=== PATIENT | female | born 1960 | race Caucasian/White ===

== ENCOUNTER 2016-04-12 09:22 | Inpatient (IN) | payer OTHER ==
[~2016-04-12] VITALS: Ht 162.6 cm; Wt 71.6 kg
[2016-04-12] VITALS (11 sets, daily range): BP systolic 79–102; BP diastolic 46–58
--- NOTE | 2016-04-12 10:59 | DIAGNOSTIC IMAGING REPORT ---
PROCEDURE: XR CHEST 1 VIEW INDICATION: COUGH TECHNIQUE: Portable AP view 09:43 a.m. COMPARISON: 01/30/2016 FINDINGS: Lungs are clear. Heart and mediastinum are normal. Thorax is normal. IMPRESSION: 1. Negative chest.
--- NOTE | 2016-04-12 13:09 | ED ORDER SUMMARY ---
..... Patient: JESUS HUGHES OrderSheet [facility] VisitID: [id number] [address] [place] [address] 55y, F Registration Date/Time: 04/12/2016 ORDER SHEET Weight: 68.0 kg Allergies: Ampicillin, Cipro, PredniSONE, Sulfa Antibiotics, Zithromax GENERAL ORDERS: RT Evaluation Stat (09:34 04/12/2016 JBoardley R.N. per protocol) (9:34 JBoardley R.N.) Electronic Transaction Implementer (Continuous) (Respiratory Distress) (09:36 04/12/2016 JBoardley R.N. per protocol) (9:37 JBoardley R.N.) CBC w Diff Urgent (09:37 04/12/2016 JBoardley R.N. per protocol) (Ack 9:38 Marlon) (9:46 JBoardley R.N.) CMP Urgent (09:37 04/12/2016 JBoardley R.N. per protocol) (Ack 9:38 OHcecilianandez) (9:46 JBoardley R.N.) Pulse oximeter (09:37 04/12/2016 JBoardley R.N. per protocol) (9:37 JBoardley R.N.) Vitals (09:37 04/12/2016 JBoardley R.N. per protocol) (9:37 JBoardley R.N.) Chest 1V Urgent (09:38 04/12/2016 JBoardley R.N. per protocol) (Ack 9:39 Charlienandez) (9:45 JBoardley R.N.) Rapid Influenza Screen (Nasal Pharyngeal) (Nasal) Urgent (09:38 04/12/2016 JBoardley R.N. per protocol) (Ack 9:39 OHcecilianandez) (9:46 JBoardley R.N.) Culture, Sputum (Sputum) (Sputum sample) Urgent (09:41 04/12/2016 JBoardley R.N. per protocol) (Ack 9:51 OHcecilianandez) (9:51 JBoardley R.N.) PCT (Procalcitonin) Urgent (10:32 04/12/2016 Jenna JACOBS) (Ack 10:36 RKaruga) (11:00 JBoardley R.N.) Lactate, Serum Urgent (10:32 04/12/2016 Jenna JACOBS) (Ack 10:36 RKaruga) (11:00 JBoardley R.N.) ABG (G) Urgent (10:33 04/12/2016 Jenna JACOBS) (Ack 10:36 RKaruga) (Cancelled: Patient Zdtdawp36:19 JBoardley R.N.) Blood Culture (No) (N/A) Urgent (10:37 04/12/2016 Jenna JACOBS) (Ack 10:52 RKaruga) (11:00 JBoardley R.N.) UA-Culture if indicated Urgent (11:12 04/12/2016 JBoardley R.N. per protocol) (Ack 11:21 RKaruga) (11:21 RKaruga) EKG - ER Stat (12:54 04/12/2016 Jenna JACOBS) (Ack 13:15 OHernandez) (13:15 OHernandez) - (Biofire screen.) (13:08 04/12/2016 Jenna JACOBS) (Ack 13:56 Ramakrishna) (14:03 JBoardley R.N.) MEDICATION ORDERS: DuoNeb Neb Tx 1 unit dose (NOW) (09:34 04/12/2016 JBoardley R.N. per protocol) (9:34 JBoardley R.N.) Hydrocodone-APAP PO 10/650 mg (NOW) (10:41 04/12/2016 Jenna JACOBS) (Ack 10:43 JBoardley R.N.) (10:58 JBoardley R.N.) DuoNeb Neb Tx 1 unit dose (NOW) (12:54 04/12/2016 Jenna JACOBS) (13:04 RMcCarson) IV FLUIDS: IV Saline Lock (09:37 04/12/2016 JBoardley R.N. per protocol) (9:42 JBoardley R.N.) Solu-MEDROL IV 125 mg (NOW) (10:33 04/12/2016 Jenna JACOBS) (Ack 10:36 JBoardley R.N.) (11:08 JBoardley R.N.) IV NS : initial bolus none -, then 250 mL/hr for 4h (NOW); Routine (10:34 04/12/2016 Jenna JACOBS) (Ack 10:36 JBoardley R.N.) (10:58 JBoardley R.N.) Rocephin IV 2 gm/50mL (NOW) (10:38 04/12/2016 Jenna JACOBS) (Ack 10:43 JBoardley R.N.) (11:07 JBoardley R.N.) Toradol IV 30 mg (NOW) (10:40 04/12/2016 Jenna JACOBS) (Ack 10:43 JBoardley R.N.) (10:58 JBoardley R.N.) Benadryl IV 50 mg (NOW) (10:52 04/12/2016 Jenna JACOBS) (10:59 JBoardley R.N.) IV NS : initial bolus 1000 mL (1000 mL/hr), then none - for X1 (NOW); Stat (12:29 04/12/2016 Cherelle R.N. verbal order read back to Jenna JACOBS) (12:30 JBoardley R.N.) ORDER SHEET NOTES: [Electronically signed by Aj Roblero R.N. (16:35 04/12/2016)] [Electronically signed by Ian Barker MD (16:51 04/12/2016)] [Electronically locked/signed by Aj Roblero R.N. (16:35 04/12/2016)]
--- NOTE | 2016-04-12 13:09 | ED CLINICAL REPORT ---
Clinical Report - Physicians/Mid Levels [facility] [address] [place] [address] 04/12/2016 9:22 Patient: JESUS HUGHES Time Seen: 10:20 Apr 12 2016. Arrived- By private vehicle. Historian- patient. CPT: EKG interpretation (#[id number]). HISTORY OF PRESENT ILLNESS Chief Complaint: DYSPNEA, WHEEZING and HISTORY OF ASTHMA. 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 The dyspnea is described as moderate. The patient has had sputum production and a cough. No chest pain. Asthma triggers: unknown. (patient indicates she was diagnosed with pneumonia 2 weeks ago and went through a course of antibiotics for 10 days. Antibiotics ended 4 days ago. Patient then started to get worse again Tuesday or 2 days prior to arrival.). Similar symptoms previously: As bad. Diagnosis: asthma, COPD exacerbation and pneumonia. Recent medical care: ( ( Pt was recently seen and finished abx course due, dx of PNA by [facility])). REVIEW OF SYSTEMS No sore throat, nasal discharge, sinus drainage, chills or muscle aches. No headache, palpitations, calf pain, nausea or abdominal pain. No diarrhea, black stools, difficulty with urination, excessive urination or skin rash. No enlarged lymph nodes. The patient has had fever. All systems otherwise negative, except as recorded above. PAST HISTORY Glaucoma Emphysema. Bronchitis. Asthma. COPD - Chronic Obstructive Pulmonary Disease. Surgeries: Adenoidectomy. Breast Augmentation. Eye (for glaucoma). Hysterectomy. Thoracic outlet syndrome. Tonsillectomy. SOCIAL HISTORY Former smoker. PHYSICAL EXAM Vital Signs: 04/12/2016 09:27 BP: 113/71. HR: 110. RR: 26. O2 saturation: 90%. Temp: 98 F. Appearance: Alert. Patient in moderate distress. Eyes: Eyes normal inspection. ENT: Ears normal. Nose normal. Pharynx normal. Uvula midline. Neck: Normal inspection. Neck supple. No meningeal signs. CVS: Tachycardia. Heart sounds normal. Pulses normal. Respiratory: Moderate respiratory distress with accessory muscle use and tachypnea. Moderately decreased air movement diffusely over both lungs. Expiratory moderate bilateral wheezes posteriorly. Rhonchi present. Abdomen: Soft and nontender. Back: Normal inspection. Skin: Skin warm. Normal skin color. No rash. Extremities: Extremities exhibit normal ROM. No calf tenderness. No lower extremity edema. Neuro: Oriented X 3. No motor deficit. No sensory deficit. Reflexes normal. LABS, X-RAYS, AND EKG EKG: Normal sinus rhythm. Normal P waves. Normal MAGDALENA. Normal QRS complex. Normal axis. T wave inversion in lead V1 and V2. No ST elevation. Prior EKG unavailable. The study has been interpreted contemporaneously. The study has been independently viewed by me. The EKG appears to be a good tracing. Chest X-ray: No infiltrate. (Breast implants. No evidence of acute infiltrate.). Views: AP (portable). Technique: good. The X-rays were independently viewed by me. Prior films were not available for comparison. Laboratory Tests: CBC w Diff: (NICOLASA: 04/12/2016 09:30) ( [facility] 04/12/[place] 09:59) Final results Test Result Flag Units (Reference) WHITE BLOOD COUNT 20.4 H K/uL (4.5-11.5) RED BLOOD COUNT 4.82 M/uL (4.00-5.20) HEMOGLOBIN 14.9 gm/dL (12.0-16.0) HEMATOCRIT 45.0 % (36.0-46.0) MEAN CELL VOLUME 94 fL (80-100) MEAN CORPUSCULAR HGB 31 pg (26-34) MEAN CORPUSCULAR HGB CONC 33 g/dL (31-37) RED CELL DISTRIBUTION WIDTH 12.6 % (11.6-14.8) PLATELET COUNT 370 K/uL (150-400) NEUTROPHIL % 83.9 H % (50-75) LYMPH % 8.2 L % (25-40) MONO % 6.8 % (3-14) EOSINOPHIL % 0.1 % (0-4) BASOPHIL % 1.0 % (0-2) CMP: (NICOLASA: 04/12/2016 09:30) ( [facility] 04/12/2016 10:07) Final results Test Result Flag Units (Reference) GLUCOSE 108 mg/dL (70-110) BUN 10 mg/dL (7-18) CREATININE 0.8 mg/dL (0.6-1.3) Estimated GFR >60 mL/min Estimated GFR- >60 mL/min Note: Persistent reduction over 3 months in eGFR<60 mL/min/1.73 m2 defines CKD. Patients with eGFR values>=60 mL/min/1.73 m2 may also have CKD if evidence ofpersistent proteinuria. Additional information may be foundat www.kidney.org. SODIUM 142 mmol/L (136-145) POTASSIUM 3.9 mmol/L (3.5-5.1) CHLORIDE 106 mmol/L (98-107) CARBON DIOXIDE 24 mmol/L (21-32) CALCIUM 8.6 mg/dL (8.5-10.1) TOTAL PROTEIN 6.8 g/dL (6.4-8.2) ALBUMIN 3.7 g/dL (3.3-5.0) BILIRUBIN, TOTAL 1.2 H mg/dL (0.0-1.0) ALKALINE PHOSPHATASE 59 U/L (46-116) AST (SGOT) 14 L U/L (15-37) ALT (SGPT) 29 U/L (12-78) Rapid Influenza Screen: (NICOLASA: 04/12/2016 09:30) ( [facility]cvd 04/12/2016 10:19) Final results SPECIMEN DESCRIPTION: NASAL Test Result Flag Units (Reference) RAPID INFLUENZA SCREEN DATE: 04/12/16 INFLUENZA A: NEGATIVE SCREEN FOR INFLUENZA A INFLUENZA B: NEGATIVE SCREEN FOR INFLUENZA B . PROGRESS AND PROCEDURES Course of Care: IV normal saline. Dual neb hand-held neb 2. Blood cultures 1. Rocephin 2 g IV. toradol 30 mg IV. Hydrocodone 10 mg by mouth. Patient dropped her blood pressure into the 70-80 range for unclear reasons. She was treated with boluses of IV normal saline. Her blood pressure came back up to 100/65 after fluids. Critical care performed (30 minutes). Time is exclusive of separately billable procedures. Time includes: direct patient care, patient reassessment, coordination of patient care, interpretation of data (laboratory data, pulse oximetry and chest xrays), review of patient's medical records, medical consultation and documentation of patient care. Procedures included in critical care time: peripheral IV placement and phlebotomy. Procedures excluded from critical care time: electrocardiography. Discussed case with on-call health care provider, (Kely). Reviewed test results. Agreed upon treatment plan. Health care provider will see patient in hospital. Patient/family counseled. Old medical records ordered. Disposition orders written. Disposition: Admitted to the Critical Care Unit. CLINICAL IMPRESSION Acute exacerbation of COPD (emphysematous) Hypoxia Hypotension. (Electronically signed by Ian Barker MD 04/12/2016 16:51)
--- NOTE | 2016-04-12 13:09 | ED CLINICAL REPORT ---
Clinical Report - Physicians/Mid Levels [facility] [address] [place] [address] 04/12/2016 9:22 Patient: JESUS HUGHES Time Seen: 10:20 Apr 12 2016. Arrived- By private vehicle. Historian- patient. CPT: EKG interpretation (#[id number]). HISTORY OF PRESENT ILLNESS Chief Complaint: DYSPNEA, WHEEZING and HISTORY OF ASTHMA. 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 The dyspnea is described as moderate. The patient has had sputum production and a cough. No chest pain. Asthma triggers: unknown. (patient indicates she was diagnosed with pneumonia 2 weeks ago and went through a course of antibiotics for 10 days. Antibiotics ended 4 days ago. Patient then started to get worse again Tuesday or 2 days prior to arrival.). Similar symptoms previously: As bad. Diagnosis: asthma, COPD exacerbation and pneumonia. Recent medical care: ( ( Pt was recently seen and finished abx course due, dx of PNA by [facility])). REVIEW OF SYSTEMS No sore throat, nasal discharge, sinus drainage, chills or muscle aches. No headache, palpitations, calf pain, nausea or abdominal pain. No diarrhea, black stools, difficulty with urination, excessive urination or skin rash. No enlarged lymph nodes. The patient has had fever. All systems otherwise negative, except as recorded above. PAST HISTORY Glaucoma Emphysema. Bronchitis. Asthma. COPD - Chronic Obstructive Pulmonary Disease. Surgeries: Adenoidectomy. Breast Augmentation. Eye (for glaucoma). Hysterectomy. Thoracic outlet syndrome. Tonsillectomy. SOCIAL HISTORY Former smoker. PHYSICAL EXAM Vital Signs: 04/12/2016 09:27 BP: 113/71. HR: 110. RR: 26. O2 saturation: 90%. Temp: 98 F. Appearance: Alert. Patient in moderate distress. Eyes: Eyes normal inspection. ENT: Ears normal. Nose normal. Pharynx normal. Uvula midline. Neck: Normal inspection. Neck supple. No meningeal signs. CVS: Tachycardia. Heart sounds normal. Pulses normal. Respiratory: Moderate respiratory distress with accessory muscle use and tachypnea. Moderately decreased air movement diffusely over both lungs. Expiratory moderate bilateral wheezes posteriorly. Rhonchi present. Abdomen: Soft and nontender. Back: Normal inspection. Skin: Skin warm. Normal skin color. No rash. Extremities: Extremities exhibit normal ROM. No calf tenderness. No lower extremity edema. Neuro: Oriented X 3. No motor deficit. No sensory deficit. Reflexes normal. LABS, X-RAYS, AND EKG EKG: Normal sinus rhythm. Normal P waves. Normal MAGDALENA. Normal QRS complex. Normal axis. T wave inversion in lead V1 and V2. No ST elevation. Prior EKG unavailable. The study has been interpreted contemporaneously. The study has been independently viewed by me. The EKG appears to be a good tracing. Chest X-ray: No infiltrate. (Breast implants. No evidence of acute infiltrate.). Views: AP (portable). Technique: good. The X-rays were independently viewed by me. Prior films were not available for comparison. Laboratory Tests: CBC w Diff: (NICOLASA: 04/12/2016 09:30) ( [facility] [place] 09:59) Final results Test Result Flag Units (Reference) WHITE BLOOD COUNT 20.4 H K/uL (4.5-11.5) RED BLOOD COUNT 4.82 M/uL (4.00-5.20) HEMOGLOBIN 14.9 gm/dL (12.0-16.0) HEMATOCRIT 45.0 % (36.0-46.0) MEAN CELL VOLUME 94 fL (80-100) MEAN CORPUSCULAR HGB 31 pg (26-34) MEAN CORPUSCULAR HGB CONC 33 g/dL (31-37) RED CELL DISTRIBUTION WIDTH 12.6 % (11.6-14.8) PLATELET COUNT 370 K/uL (150-400) NEUTROPHIL % 83.9 H % (50-75) LYMPH % 8.2 L % (25-40) MONO % 6.8 % (3-14) EOSINOPHIL % 0.1 % (0-4) BASOPHIL % 1.0 % (0-2) CMP: (NICOLASA: 04/12/2016 09:30) ( [facility] [place]/12[place]:07) Final results Test Result Flag Units (Reference) GLUCOSE 108 mg/dL (70-110) BUN 10 mg/dL (7-18) CREATININE 0.8 mg/dL (0.6-1.3) Estimated GFR >60 mL/min Estimated GFR- >60 mL/min Note: Persistent reduction over 3 months in eGFR<60 mL/min/1.73 m2 defines CKD. Patients with eGFR values>=60 mL/min/1.73 m2 may also have CKD if evidence ofpersistent proteinuria. Additional information may be foundat www.kidney.org. SODIUM 142 mmol/L (136-145) POTASSIUM 3.9 mmol/L (3.5-5.1) CHLORIDE 106 mmol/L (98-107) CARBON DIOXIDE 24 mmol/L (21-32) CALCIUM 8.6 mg/dL (8.5-10.1) TOTAL PROTEIN 6.8 g/dL (6.4-8.2) ALBUMIN 3.7 g/dL (3.3-5.0) BILIRUBIN, TOTAL 1.2 H mg/dL (0.0-1.0) ALKALINE PHOSPHATASE 59 U/L (46-116) AST (SGOT) 14 L U/L (15-37) ALT (SGPT) 29 U/L (12-78) Rapid Influenza Screen: (NICOLASA: 04/12/2016 09:30) ( MsgRcvd 04/12/2016 10:19) Final results SPECIMEN DESCRIPTION: NASAL Test Result Flag Units (Reference) RAPID INFLUENZA SCREEN DATE: 04/12/16 INFLUENZA A: NEGATIVE SCREEN FOR INFLUENZA A INFLUENZA B: NEGATIVE SCREEN FOR INFLUENZA B . PROGRESS AND PROCEDURES Course of Care: IV normal saline. Dual neb hand-held neb 2. Blood cultures 1. Rocephin 2 g IV. toradol 30 mg IV. Hydrocodone 10 mg by mouth. Patient dropped her blood pressure into the 70-80 range for unclear reasons. She was treated with boluses of IV normal saline. Her blood pressure came back up to 100/65 after fluids. Critical care performed (30 minutes). Time is exclusive of separately billable procedures. Time includes: direct patient care, patient reassessment, coordination of patient care, interpretation of data (laboratory data, pulse oximetry and chest xrays), review of patient's medical records, medical consultation and documentation of patient care. Procedures included in critical care time: peripheral IV placement and phlebotomy. Procedures excluded from critical care time: electrocardiography. Discussed case with on-call health care provider, (Kely). Reviewed test results. Agreed upon treatment plan. Health care provider will see patient in hospital. Patient/family counseled. Old medical records ordered. Disposition orders written. Disposition: Admitted to the Critical Care Unit. CLINICAL IMPRESSION Acute exacerbation of COPD (emphysematous) Hypoxia Hypotension. (Electronically signed by Ian Barker MD 04/12/2016 16:51)
--- NOTE | 2016-04-12 13:09 | ED NURSING NOTES ---
Clinical Report - Nurses [facility] [address] [place] [address] 04/12/2016 9:22 Patient: JESUS HUGHES TRIAGE Triage time 09:27. Acuity: LEVEL 3. Chief Complaint: SHORTNESS OF BREATH, DIFFICULTY BREATHING and "ASTHMA ATTACK". 09:28 04/12/16. 09:28 04/12/16. --09:33 Aj Roblero R.N. 09:27 04/12/16. BP: 113/71. HR: 110. RR: 26. O2 saturation: 90% on room air. Temp: 98 F (oral). --09:33 Aj Roblero R.N. 09:35 04/12/16. Pain level now: 8/10. --09:35 Aj Roblero R.N. ( Pt was recently seen and finished abx course due, dx of PNA by [facility]). --09:40 Aj Roblero R.N. Weight: 68 kg. Height/Length: 64 inches. BMI: 25.8. --09:29 Aj Roblero R.N. Medications Advair Diskus Inhalation 2 puffs, 2x a day. Ventolin HFA Inhalation 2 puffs, as needed. --09:31 Aj Roblero R.N. Medication/allergy information source: the patient. --09:33 Aj Roblero R.N. Allergies Ampicillin. Cipro. Definite Moderate(hives) PredniSONE. (broke out with Welts with Prednisone, was treated with Decadron, still needed Benadryl. ) Sulfa Antibiotics. Definite Moderate(hives) Zithromax. Definite Moderate(swelling) --09:31 Aj Roblero R.N. History Arrived by private vehicle. Historian: patient. Accompanied by family. Primary physician (GWEN KOO). 09:28 04/12/16. Onset. (2 DAYS AGO). 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 PAST MEDICAL HX: Immunizations not up to date. SOCIAL HX: Former smoker. No alcohol use or drug use. No infectious disease exposure. ABUSE ASSESSMENT: No report of abuse. FALL RISK ASSESSMENT: Fall risk assessment completed. No fall risk identified. NUTRITIONAL RISK ASSESSMENT: The nutritional risk assessment revealed no deficiencies. FUNCTIONAL ASSESSMENT: Functional assessment: no impairments noted. LEARNING NEEDS ASSESSMENT: The learning needs assessment revealed no barriers. SKIN INTEGRITY ASSESSMENT: Skin integrity risk assessment completed. No skin integrity risk identified. --09:33 Aj Roblero R.N. PROBLEMS: Hives. Emphysema. Bronchitis. Asthma. COPD - Chronic Obstructive Pulmonary Disease. --09:32 Aj Roblero R.N. ADDITIONAL SURGERIES: Adenoidectomy. Breast Augmentation. Eye (for glaucoma). Hysterectomy. Thoracic outlet syndrome. Tonsillectomy. --09:32 Aj Roblero R.N. Assessment 09:04/12/16. --09:33 Aj Roblero R.N. Interventions 09:04/12/16. 09:04/12/16. ID and allergy band on patient. Precautions initiated (masked due to cough). To treatment room. --09:33 Aj Roblero R.N. PHYSICAL ASSESSMENT 09:04/12/16. To room via wheelchair. GENERAL / NEURO / PSYCH: Alert. Oriented X 4. RESPIRATORY: Moderate respiratory distress. The patient can speak a few words at a time. CVS: Capillary refill less than 2 seconds. SKIN: Skin is warm and dry. --09:29 Aj Roblero R.N. NURSING PROGRESS NOTES 09:04/12/16. The plan of care for this patient has been created. Pulse oximeter and NIBP monitor placed on patient; monitor alarms on. Patient gowned. Head of bed elevated. Two patient identifiers checked. Call light placed in reach. Side rails up x 2. Bed placed in lowest position. Brakes of bed on. Brakes of chair on. --09:30 Aj Roblero R.N. 09:33 04/12/16. shoes hand sewer placed on patient. --09:33 Aj Roblero R.N. 09:34 04/12/2016 Duoneb (Ipratropium-Albuterol) Neb TX 1 unit dose given. Given by the nurse. Allergies verified and confirmed 5 rights. --09:34 Aj Roblero R.N. 09:35 04/12/16. --09:35 Aj Roblero R.N. 09:34 04/12/16. O2 saturation: 96%. Additional comments: with neb. --09:35 Aj Roblero R.N. 09:42 04/12/2016 Site #1 started via IV in the right antecubital space with an 20g angiocath, with aseptic technique and good blood return; one attempt. Blood drawn: rainbow set. Labeled in the presence of the patient and sent to the lab. Saline lock flushed with 10 mL saline. --09:42 Aj Roblero R.N. 09:46 04/12/16. O2 saturation: 94%. O2 started via nasal cannula at 3 liters/minute. --09:46 Aj Roblero R.N. 09:46 04/12/16. --09:46 Aj Roblero R.N. 09:46 04/12/16. ( Sats decreased after neb, placed on 3LNC by RT sats now 94%). --09:46 Aj Roblero R.N. 09:48 04/12/16. --09:48 Aj Roblero R.N. 09:47 04/12/16. BP: 110/71. HR: 107. RR: 34. O2 saturation: 94% on nasal cannula at 3 liters/minute. --09:48 Aj Roblero R.N. 10:07 04/12/16. Cardiac rhythm: normal sinus rhythm; (97). --10:07 Aj Roblero R.N. 10:07 04/12/16. BP: 100/66. HR: 97. RR: 27. O2 saturation: 93% on nasal cannula at 3 liters/minute. --10:07 Aj Roblero R.N. 10:36 04/12/16. Patient ID band checked for patient name and birthdate: patient confirmed. Sputum culture. Patient ID band checked for patient name and birthdate: patient confirmed. Flu swab obtained by RN via nasal swab. Labeled in the presence of the patient. --10:36 Aj Roblero R.N. 10:44 04/12/16. BP: 108/70. HR: 93. RR: 24. O2 saturation: 94% on nasal cannula at 3 liters/minute. --10:44 Aj Roblero R.N. 10:44 04/12/16. --10:44 Aj Roblero R.N. 10:44 04/12/16. Cardiac rhythm: normal sinus rhythm. --10:44 Aj Roblero R.N. 10:48 04/12/2016 Started IV Fluids IV NS (Saline); at 250 mL/hr over 4 hour(s) via site #1. Allergies verified and confirmed 5 rights. IV patency established. IV site checked: no pain, redness, or swelling. IV flushed thoroughly pre- and post-medication administration. Completed per protocol. --10:58 Aj Roblero R.N. 10:58 04/12/2016 Toradol IVP 30 mg given over 2 minute(s) via site #1. Allergies verified and confirmed 5 rights. IV patency established. IV site checked: no pain, redness, or swelling. IV flushed thoroughly pre- and post-medication administration. IVP given by RN. --10:58 Aj Roblero R.N. 10:58 04/12/2016 Hydrocodone-APAP (Hydrocodone-Acetaminophen) PO 5/325 mg Tablets 2 tab given. Allergies verified, confirmed 5 rights and sedative warning given to the patient. --10:58 Aj Roblero R.N. 10:59 04/12/2016 Benadryl (DiphenhydrAMINE HCl) IVP 50 mg given over 2 minute(s) via site #1. Allergies verified, confirmed 5 rights and sedative warning given to the patient. IV patency established. IV site checked: no pain, redness, or swelling. IV flushed thoroughly pre- and post-medication administration. IVP given by RN. --10:59 Aj Roblero R.N. 10:50. Patient ID band checked for patient name and birthdate: patient confirmed urine collected with return of yellow-colored clear urine; odor is normal; sample sent to lab for urinalysis and culture. Specimen labeled in the presence of the patient. --11:00 Sarina Stephenson 11:07 04/12/2016 Started 2 gm of Rocephin (CefTRIAXone Sodium) IVPB in bag #1 50 mL; at 100 mL/hr over 30 minute(s) via site #1 via IV pump. Allergies verified and confirmed 5 rights. IV patency established. IV site checked: no pain, redness, or swelling. IV flushed thoroughly pre- and post-medication administration. Completed per protocol. --11:07 Aj Roblero R.N. 11:08 04/12/2016 SOLU-MEDROL (MethylPREDNISolone Sodium Succ) IVP 125 mg given over 2 minute(s) via site #1. Allergies verified and confirmed 5 rights. IV patency established. IV site checked: no pain, redness, or swelling. IV flushed thoroughly pre- and post-medication administration. IVP given by RN. --11:08 Aj Roblero R.N. 11:04/12/16. ( Pt states she is sensitive to Solumedrol, aware gave Benadryl prior, Blood cultures drawn then started ABX, other labs drawn by lab). --11:09 Aj Roblero R.N. 11:04/12/16. Cardiac rhythm: normal sinus rhythm. --11:10 Aj Roblero R.N. 11:09 04/12/16. BP: 100/65. HR: 91. RR: 26. O2 saturation: 93% on nasal cannula at 3 liters/minute. --11:10 Aj Roblero R.N. 11:10 04/12/16. Overall patient status- she states feels better. --11:10 Aj Roblero R.N. 11:12 04/12/16. Patient ID band checked for patient name and birthdate: patient confirmed. Clean catch urine collected with return of yellow-colored urine; sample sent to lab for urinalysis and culture. Specimen labeled in the presence of the patient. --11:12 Aj Roblero R.N. 11:13 04/12/16. ( Assisted pt to BSC then back to bed). --11:13 Aj Roblero R.N. 12:04/12/16. ( MD aware of BP of 84 systolic, ordered to take manual BP). --12:10 Aj Roblero R.N. 12:04/12/16. Cardiac rhythm: normal sinus rhythm. --12:10 Aj Roblero R.N. 12:04/12/16. BP: 84/44. HR: 72. RR: 14. O2 saturation: 94% on nasal cannula at 3 liters/minute. --12:10 Aj Roblero R.N. 12:18 04/12/2016 Site #2 started via IV in the left antecubital space with an 18g angiocath; one attempt. Saline lock flushed with 10 mL saline. --12:18 Aj Roblero R.N. 12:04/12/2016 Started bag #1 1000 mL IV Fluids IV NS (Saline); at 1000 mL/hr over 1 hour(s) via site #2. Allergies verified and confirmed 5 rights. IV patency established. IV site checked: no pain, redness, or swelling. IV flushed thoroughly pre- and post-medication administration. Completed per protocol. --12:30 Aj Roblero R.N. 12:04/12/2016 Rocephin IVPB Discontinued: infused. Total amount infused: 50 mL. IV patency established. IV site checked: no pain, redness, or swelling. IV flushed thoroughly. --12:30 Aj Roblero R.N. 12:04/12/16. ( Decreased BP, MD aware, new order for 1 Liter NS bolus of saline). --12:31 Aj Roblero R.N. 13:04 04/12/2016 Duoneb (Ipratropium-Albuterol) Neb TX Nebulizer 1 unit dose given. --13:04 Jennifer Hill EKG time: (1304). EKG was ordered, performed by a tech and shown to the ED physician. --13:15 Alesia Holland 13:16 04/12/16. BP: 84/50. HR: 70. RR: 18. O2 saturation: 96% on nasal cannula at 3 liters/minute. --13:16 Aj Roblero R.N. 13:08 04/12/2016 IV Fluids IV NS Discontinued: bag #1 infused. Total amount infused: 1 Liter mL. IV patency established. IV site checked: no pain, redness, or swelling. IV flushed thoroughly. --13:18 Aj Roblero R.N. 13:16 04/12/16. Cardiac rhythm: normal sinus rhythm. --13:16 Aj Roblero R.N. 13:17 04/12/16. ( pt to be admitted). --13:17 Aj Roblero R.N. 13:39 04/12/16. BP: 91/51. HR: 71. RR: 18. O2 saturation: 93% on nasal cannula at 3 liters/minute. --13:39 Aj Roblero R.N. 13:39 04/12/16. Cardiac rhythm: normal sinus rhythm. --13:39 Aj Roblero R.N. 13:39 04/12/16. Reassessment after medication administered (IV fluids). Overall patient status is improved- she states feels better. --13:39 Aj Roblero R.N. 13:39 04/12/16. ( Kely form given to pt). --13:39 Aj Roblero R.N. 13:51 04/12/16. ( Waiting on admit bed). --13:51 Aj Roblero R.N. 13:57 04/12/16. ( BioFire swab ordered, already collected and can add on to influenza swab). --13:57 Aj Roblero R.N. 14:42 04/12/16. BP: 86/60. HR: 69. RR: 14. O2 saturation: 95% on nasal cannula at 3 liters/minute. Temp: 98 F (oral). --14:43 Aj Roblero R.N. 14:43 04/12/16. --14:43 Aj Roblero R.N. 14:43 04/12/16. Cardiac rhythm: normal sinus rhythm. --14:43 Aj Roblero R.N. 15:39 04/12/16. ( Waiting for admit bed). --15:39 Aj Roblero R.N. 16:09 04/12/2016 IV Fluids IV NS Discontinued: infused. Total amount infused: 1000 mL. IV patency established. IV site checked: no pain, redness, or swelling. IV flushed thoroughly. --16:34 Aj Roblero R.N. DISPOSITION / DISCHARGE 13:17 04/12/16. Patient's personal items include, Purse, no weapons, no meds, slippers, sweatshirt; items were placed in belongings bag, given to the patient and transported with the patient. --13:17 Aj Roblero R.N. 13:17 04/12/16. Bed obtained but not ready. --13:17 Aj Roblero R.N. 14:51 04/12/2016 Site #[address] upon admission; patent. Good blood return present. Flushed with 10 mL saline; flushes easily. --14:51 Aj Roblero R.N. 14:52 04/12/2016 Site #[address] upon admission; patent. Good blood return present. Converted to saline lock and flushed with 10 mL saline; flushes easily. --14:52 Aj Roblero R.N. 14:52 04/12/16. Cardiac rhythm: normal sinus rhythm. Condition at departure: improved. The goals identified in the patient's plan of care were met. FALL RISK ASSESSMENT: Fall risk assessment completed. No fall risk identified. --14:52 Aj Roblero R.N. 14:50 04/12/16. BP: 86/60. HR: 68. RR: 18. O2 saturation: 94% on nasal cannula at 3 liters/minute. Temp: 98.2 F (oral). --14:52 Aj Roblero R.N. 15:39 04/12/16. Cardiac rhythm: normal sinus rhythm. --15:39 Aj Roblero R.N. 15:39 04/12/16. BP: 88/56. HR: 64. RR: 16. O2 saturation: 94% on nasal cannula at 3 liters/minute. --15:39 Aj Roblero R.N. 16:02 04/12/16. Cardiac rhythm: normal sinus rhythm. --16:02 Aj Roblero R.N. 16:04/12/16. BP: 88/56. HR: 67. RR: 18. O2 saturation: 94% on nasal cannula at 3 liters/minute. --16:02 Aj Roblero R.N. 16:02 04/12/16. Transported via stretcher by nurse with IV and O2. Report was given to a nurse via a phone call. Report included patient's care, treatment, medications, reviewed medication reconcilliation, and condition (including any recent changes or anticipated changes). All questions were answered. Report was acknowledged and care was transferred. --16:02 Aj Roblero R.N. 16:02 04/12/16. Departure time: 16:02. --16:02 Aj Roblero R.N. Locked/Released at 04/12/2016 16:35 by Aj Roblero R.N.
--- NOTE | 2016-04-12 13:09 | ED ORDER SUMMARY ---
..... Patient: JESUS HUGHES OrderSheet [facility] VisitID: [id number] [address] [place] [address] 55y, F Registration Date/Time: 04/12/2016 ORDER SHEET Weight: 68.0 kg Allergies: Ampicillin, Cipro, PredniSONE, Sulfa Antibiotics, Zithromax GENERAL ORDERS: RT Evaluation Stat (09:34 04/12/2016 JBoardley R.N. per protocol) (9:34 JBoardley R.N.) Customer Experience Retail Clerk (Continuous) (Respiratory Distress) (09:36 04/12/2016 JBoardley R.N. per protocol) (9:37 JBoardley R.N.) CBC w Diff Urgent (09:37 04/12/2016 JBoardley R.N. per protocol) (Ack 9:38 Marlon) (9:46 JBoardley R.N.) CMP Urgent (09:37 04/12/2016 JBoardley R.N. per protocol) (Ack 9:38 OHcecilianandez) (9:46 JBoardley R.N.) Pulse oximeter (09:37 04/12/2016 JBoardley R.N. per protocol) (9:37 JBoardley R.N.) Vitals (09:37 04/12/2016 JBoardley R.N. per protocol) (9:37 JBoardley R.N.) Chest 1V Urgent (09:38 04/12/2016 JBoardley R.N. per protocol) (Ack 9:39 Charlienandez) (9:45 JBoardley R.N.) Rapid Influenza Screen (Nasal Pharyngeal) (Nasal) Urgent (09:38 04/12/2016 JBoardley R.N. per protocol) (Ack 9:39 OHcecilianandez) (9:46 JBoardley R.N.) Culture, Sputum (Sputum) (Sputum sample) Urgent (09:41 04/12/2016 JBoardley R.N. per protocol) (Ack 9:51 OHcecilianandez) (9:51 JBoardley R.N.) PCT (Procalcitonin) Urgent (10:32 04/12/2016 Jenna JACOBS) (Ack 10:36 RKaruga) (11:00 JBoardley R.N.) Lactate, Serum Urgent (10:32 04/12/2016 Jenna JACOBS) (Ack 10:36 RKaruga) (11:00 JBoardley R.N.) ABG (G) Urgent (10:33 04/12/2016 Jenna JACOBS) (Ack 10:36 RKaruga) (Cancelled: Patient Kptvecl37:19 JBoardley R.N.) Blood Culture (No) (N/A) Urgent (10:37 04/12/2016 Jenna JACOBS) (Ack 10:52 RKaruga) (11:00 JBoardley R.N.) UA-Culture if indicated Urgent (11:12 04/12/2016 JBoardley R.N. per protocol) (Ack 11:21 RKaruga) (11:21 RKaruga) EKG - ER Stat (12:54 04/12/2016 Jenna JACOBS) (Ack 13:15 OHernandez) (13:15 OHernandez) - (Biofire screen.) (13:08 04/12/2016 Jenna JACOBS) (Ack 13:56 Ramakrishna) (14:03 JBoardley R.N.) MEDICATION ORDERS: DuoNeb Neb Tx 1 unit dose (NOW) (09:34 04/12/2016 JBoardley R.N. per protocol) (9:34 JBoardley R.N.) Hydrocodone-APAP PO 10/650 mg (NOW) (10:41 04/12/2016 Jenna JACOBS) (Ack 10:43 JBoardley R.N.) (10:58 JBoardley R.N.) DuoNeb Neb Tx 1 unit dose (NOW) (12:54 04/12/2016 Jenna JACOBS) (13:04 RMcCarson) IV FLUIDS: IV Saline Lock (09:37 04/12/2016 JBoardley R.N. per protocol) (9:42 JBoardley R.N.) Solu-MEDROL IV 125 mg (NOW) (10:33 04/12/2016 Jenna JACOBS) (Ack 10:36 JBoardley R.N.) (11:08 JBoardley R.N.) IV NS : initial bolus none -, then 250 mL/hr for 4h (NOW); Routine (10:34 04/12/2016 Jenna JACOBS) (Ack 10:36 JBoardley R.N.) (10:58 JBoardley R.N.) Rocephin IV 2 gm/50mL (NOW) (10:38 04/12/2016 Jenna JACOBS) (Ack 10:43 JBoardley R.N.) (11:07 JBoardley R.N.) Toradol IV 30 mg (NOW) (10:40 04/12/2016 Jenna JACOBS) (Ack 10:43 JBoardley R.N.) (10:58 JBoardley R.N.) Benadryl IV 50 mg (NOW) (10:52 04/12/2016 Jenna JACOBS) (10:59 JBoardley R.N.) IV NS : initial bolus 1000 mL (1000 mL/hr), then none - for X1 (NOW); Stat (12:29 04/12/2016 Cherelle R.N. verbal order read back to Jenna JACOBS) (12:30 JBoardley R.N.) ORDER SHEET NOTES: [Electronically signed by Aj Roblero R.N. (16:35 04/12/2016)] [Electronically signed by Ian Barker MD (16:51 04/12/2016)] [Electronically locked/signed by Aj Roblero R.N. (16:35 04/12/2016)]
--- NOTE | 2016-04-12 14:02 | Progress Note ---
Subjective General Admission History and Physical Examination Patient Name: Susie Miranda Admission Date: April 12, 2015 Primary Care Provider: Che Good D.O. Attending Physician: Justin Edge M.D. Admitting Physician: Justin Edge M.D. SUBJECTIVE Historian: Patient Reliability: Fair Chief Complaint: Shortness of breath History of Present Illness: The patient is a 55-year-old white female with a significant past medical history of COPD, recent pneumonia, previous smoker, glaucoma, who presented to [facility] emergency department on the day of admission secondary to complaints of shortness of breath. [facility] ER evaluation was consistent with exacerbation of COPD , bronchitis. Secondary to the above, the patient was admitted by Justin Edge M.D. for further evaluation and treatment The history of present was began 2 days prior to admission when the patient experienced increasing shortness of breath cough and wheezing. This grew progressively more severe over the next 2 days. It was unassociated with fever or chills. Secondary to increasing shortness of breath despite outpatient therapy the patient presented to [facility] emergency department for further evaluation and treatment. [facility] ER evaluation showed the patient to have vital signs of blood pressure 113/71, pulse 110, respirations 26, temperature 98.0 Fahrenheit, O2 sats 90% room air. Evaluation was consistent with exacerbation of COPD/ bronchitis. Secondary to the above the patient was admitted for further evaluation and treatment PAST MEDICAL HISTORY Illnesses: 1. COPD 2. Glaucoma Allergies: 1. Penicillin 2. Cipro 3. Prednisone 4. Sulfa 5. Zithromax Medications: 1. Advair Diskus 250/50 one inhalation twice a day 2. Ventolin HFA 2 inhalations every 6 hours when necessary shortness of breath Surgery: 1. 2005, bilateral breast augmentation 2. 2003, hysterectomy 3. Tonsillectomy/adenoidectomy 4. Thoracic L at syndrome 5. Glaucoma surgery Injuries: 1. No significant Hospitalizations: 1. For above surgery and medical problems FAMILY HISTORY Parents: 1. Father, , 65, lung cancer, 2. Mother, , 72, atherosclerosis Siblings: 1. None Children: 1. Male, living, 30, Crohn's disease Other significant family history: None SOCIAL HISTORY 1. Marital Status: 2. Mosque: None 3. Education: High school, 2 years college 4. Employment History: Unemployed 5. Occupational health exposures: No significant HABITS 1. Tobacco: 25 pack years, currently nonsmoker 2. Drugs: None 3. Alcohol: None 4. Caffeine: 2 cups per day, coffee HEALTH SUPERVISION Item/Test 1. Vision screen: 2015 2. Cholesterol Profile: Unknown 3. PSA: Not applicable 4. LUIS ALFREDO: Not applicable 5. FOBT: Unknown 6. Blood Glucose: 2016 7. Colonoscopy: 2015 8. History and physical exam: No recent 9. Audiogram: No recent 10. Mammogram: No recent 11. Pap/pelvic: No recent status post hysterectomy IMMUNIZATIONS: 1. Pneumococcal: Unknown 2. Influenza: Unknown 3. Tetanus: Unknown REVIEW OF SYSTEMS Remarkable for those things stated in the history of present illness and past medical history. Seventeen point review of system completed with the following notable findings: General: Fatigue, pain, weakness Eyes: Decreased visual acuity requiring corrective lenses Throat: Hoarseness, swallowing Respiratory: Shortness of breath, cough, pneumonia, asthma/COPD, wheezing Cardiovascular: Shortness of breath with exertion Gastrointestinal: Nausea, heartburn Physical Exam Vital Signs / I&Os Vital Signs Date Time Temp Pulse Resp B/P Pulse O2 O2 Flow FiO2 Ox Delivery Rate 04/12 1305 3.0 04/12 0946 3.0 General Appearance Alert, Oriented X3, Cooperative, No acute distress HEENT Atraumatic, PERRLA, EOMI, Moist mucous membranes Lungs Normal air movement, minimal expiratory wheezes Breasts Bilateral breast implant Neck Supple, No JVD, No masses Cardiovascular Regular rate and rhythm, Normal S1 and S2, No murmurs, gallops, rubs Abdomen Normal bowel sounds, Soft, No tenderness Extremities No cyanosis, No clubbing, No edema Neurological Cranial nerves intact, No lateralizing signs Psych/Mental Status Mental status normal, Mood normal LAB Results Laboratory Tests 04/12 04/12 04/12 1050 1033 0935 Blood Gas Total CO2 Cancelled ABG pH Cancelled ABG pCO2 at Pt Temp Cancelled ABG pO2 at Pt Temp Cancelled ABG HCO3 Cancelled ABG O2 Sat Calc/Jesus Cancelled ABG Base Excess Cancelled ABG Reduced Hgb Cancelled ABG Carboxyhemoglobin Cancelled ABG Methemoglobin Cancelled Harpal Test Cancelled Other Total Hgb Cancelled Hgb O2 Saturation Cancelled FiO2 Cancelled Chemistry Lactic Acid (0.4 - 2.0 mmol/L) 1.4 Procalcitonin (0 - 0.5 ng/mL) <0.5 Urines Urine Color YELLOW Urine Appearance CLEAR Urine pH (5.0 - 8.0) 7.5 Ur Specific [place] (1.010 - 1.030) <= 1.005 Urine Protein (NEGATIVE) NEGATIVE Urine Ketones (NEGATIVE) NEGATIVE Urine Blood (NEGATIVE) TRACE-INTACT Urine Nitrite (NEGATIVE) NEGATIVE Urine Bilirubin (NEGATIVE) NEGATIVE Urine Urobilinogen (0.2 - 1.0 EU/dL) 0.2 Ur Leukocyte Esterase (NEGATIVE) NEGATIVE Urine RBC (0 - 1 rbc/hpf) 1-3 Urine WBC (0 - 1 wbc/hpf) NONE SEEN Ur Epithelial Cells (0 - 5 EPI/hpf) 3-5 Urine Bacteria (NONE SEEN) NONE SEEN Urine Glucose (NEGATIVE) NEGATIVE Urine Comment CULT NOT INDICATED 04/12 09 Chemistry Plasma Sodium (136 - 145 mmol/L) 142 Plasma Potassium (3.5 - 5.1 mmol/L) 3.9 Plasma Chloride (98 - 107 mmol/L) 106 CO2 (Enzymatic) (21 - 32 mmol/L) 24 BUN (7 - 18 mg/dL) 10 Creatinine (0.6 - 1.3 mg/dL) 0.8 Est GFR ( Amer) (mL/min) >60 Est GFR (Non-Af Amer) (mL/min) >60 Glucose (70 - 110 mg/dL) 108 Plasma Calcium (8.5 - 10.1 mg/dL) 8.6 Total Bilirubin (0.0 - 1.0 mg/dL) 1.2 AST (15 - 37 U/L) 14 ALT (12 - 78 U/L) 29 Alkaline Phosphatase (46 - 116 U/L) 59 Total Protein (6.4 - 8.2 g/dL) 6.8 Albumin (3.3 - 5.0 g/dL) 3.7 Hematology WBC (4.5 - 11.5 K/uL) 20.4 RBC (4.00 - 5.20 M/uL) 4.82 Hgb (12.0 - 16.0 gm/dL) 14.9 Hct (36.0 - 46.0 %) 45.0 MCV (80 - 100 fL) 94 MCH (26 - 34 pg) 31 RDW (11.6 - 14.8 %) 12.6 Neut % (Auto) (50 - 75 %) 83.9 Lymph % (Auto) (25 - 40 %) 8.2 [place] % (Auto) (3 - 14 %) 6.8 Eos % (Auto) (0 - 4 %) 0.1 Baso % (Auto) (0 - 2 %) 1.0 Plt Count, EDTA (150 - 400 K/uL) 370 PUBS MCHC (31 - 37 g/dL) 33 Microbiology Date/Time Procedure - Status Source Growth 04/12 105 Blood Culture - RECD BLOOD 04/12 929 Respiratory Culture - RES SPUTUM 04/12 929 Culture and Gram Stain - RES SPUTUM 04/12 929 Influenza Screen - COMP NASALPHAR Imaging Chest x-ray IMPRESSION: 1. Negative chest. Dictated by: CHAD GARCIA MD D: ZACK;04/12/16 1058 Assessment and Plan Problem List 1. Acute exacerbation of COPD with asthma Plan -Patient presents with findings of exacerbation of COPD -DuoNeb, albuterol, IV corticosteroids, supplemental oxygen as necessary -Monitor -Status improved since presentation -Consider arterial blood gas 2. Hypotension Plan -Hypotension noted during the patient's ER visit -Possibly med related -IV fluid challenge, monitor -No clear signs of sepsis -Monitor 3. Upper respiratory infection Plan -Findings of bronchitis -Patient administered Rocephin in the emergency department -Sputum for Gram stain C&S -Procalcitonin, lactic acid within normal limits -Elevated WBC, question stress related. Check manual differential -Recheck Procalcitonin in 6 hours if negative consider discontinuation of antimicrobials -Check respiratory Biofire panel Current status: Fair, improved Anticipated discharge date: Anticipated discharge in 2-3 days Anticipated discharge placement: Home Patient care time: Time spent in chart review, patient interview, physical exam, CPOE, and care documentation: Greater than 70 minutes Visit to patient today: 1 Complexity of care: High E&M Codes Admission: Inpt-High/[id number]
--- NOTE | 2016-04-12 16:21 | NUR ---
Patient admitted to room 301 [facility] ER with acute exacerbation of COPD with asthma, hypoxia, hypotension, and upper respiratory infection. Patient brought up to unit via stretcher accompanied by HOT STICK WORKER. Patient was able to move over from stretcher to bed independently. BP 96/58, HR 70, 3L NC sats 96%. Temp 98.2. Patient has loose cough noted. Yellow/green thick sputum per patient. Complained of generalized pain 5/10 from coughing so much. Sob noted with exertion. LAC and RFA IV saline locked. Patient tolerating sips of water. Patient instructed to call for assistance when getting out of bed. Family at bedside. No complaints at this time. Pleasant and cooperative with care. Will continue to monitor.
--- NOTE | 2016-04-12 16:51 | ED MED RECONCILIATION SUMMARY ---
Patient: JESUS HUGHES Medication Reconciliation Report [facility] VisitID: [id number] [address] [place] [address] 55y, F Registration Date/Time: 04/12/2016 Weight: 68.0 kg Height/Length: 64 in. BMI: 25.8 ALLERGIES: Ampicillin, Cipro, PredniSONE, Sulfa Antibiotics, Zithromax The patient's Home Medications are listed below: THE FOLLOWING MEDICATIONS NEED TO BE RECONCILED: Advair Diskus Inhalation 2 puffs, 2x a day Ventolin HFA Inhalation 2 puffs The source(s) of the original Home Medication information: patient The following Medications were given to the patient in the Emergency Department: Duoneb [Neb Tx] Neb TX 1 unit dose, administered: 04/12/2016 9:34:00 AM IV NS IV Fluids bolus 0, then 250 mL/hr, administered: 04/12/2016 10:48:00 AM Toradol [IVP] IVP 30 mg, administered: 04/12/2016 10:58:00 AM Hydrocodone-APAP [PO] PO 2 tab, administered: 04/12/2016 10:58:00 AM Benadryl [IVP] IVP 50 mg, administered: 04/12/2016 10:59:00 AM Rocephin [IVPB] IVPB bolus 0, then 2 gm 100 mL/hr, administered: 04/12/2016 11:07:00 AM SOLU-MEDROL [IVP] IVP 125 mg, administered: 04/12/2016 11:08:00 AM IV NS IV Fluids bolus 0, then 1000 mL/hr, administered: 04/12/2016 12:30:00 PM Duoneb [Neb Tx] Neb TX 1 unit dose, administered: 04/12/2016 1:04:00 PM The following Medications were prescribed to the patient: None.
--- NOTE | 2016-04-12 16:51 | ED MAR SUMMARY ---
..... Medication Administration Record [facility] [address] [place] [address] Patient: JESUS HUGHES Visit ID: [id number] 55y, F Weight: 68.0 kg Height/Length: 64 in BMI: 25.8 ALLERGIES: Ampicillin, Cipro, PredniSONE, Sulfa Antibiotics, Zithromax Given 09:34 04/12/2016 Aj Roblero R.N. Medication Administered: DUONEB [NEB TX] (IPRATROPIUM-ALBUTEROL), Dose: 1 unit dose Neb TX. Medication Ordered: DuoNeb Neb Tx 1 unit dose (NOW). Start 10:48 04/12/2016 Aj Roblero R.N., Stop 16:09 04/12/2016 Aj Roblero R.N. Medication Administered: IV NS (SALINE), Dose: IV Fluids over 4 hour(s), Rate: 250 mL/hr, Site: #1 right AC. Medication Ordered: IV NS : initial bolus none -, then 250 mL/hr for 4h (NOW); Routine. Given 10:58 04/12/2016 Aj Roblero R.N. Medication Administered: TORADOL [IVP], Dose: 30 mg IVP over 2 minute(s), Site: #1 right AC. Medication Ordered: Toradol IV 30 mg (NOW). Given 10:58 04/12/2016 Aj Roblero R.N. Medication Administered: HYDROCODONE-APAP [PO] (HYDROCODONE-ACETAMINOPHEN), Dose: 2 tab 5/325 mg Tablets PO. Medication Ordered: Hydrocodone-APAP PO 10/650 mg (NOW). Given 10:59 04/12/2016 Aj Roblero R.N. Medication Administered: BENADRYL [IVP] (DIPHENHYDRAMINE HCL), Dose: 50 mg IVP over 2 minute(s), Site: #1 right AC. Medication Ordered: Benadryl IV 50 mg (NOW). Start 11:07 04/12/2016 Aj Roblero R.N., Stop 12:30 04/12/2016 Aj Roblero R.N. Medication Administered: ROCEPHIN [IVPB] (CEFTRIAXONE SODIUM), Dose: 2 gm IVPB over 30 minute(s), Rate: 100 mL/hr, Dispensed: 50 mL bag, Site: #1 right AC. Medication Ordered: Rocephin IV 2 gm/50mL (NOW). Given 11:08 04/12/2016 Aj Roblero R.N. Medication Administered: SOLU-MEDROL [IVP] (METHYLPREDNISOLONE SODIUM SUCC), Dose: 125 mg IVP over 2 minute(s), Site: #1 right AC. Medication Ordered: Solu-MEDROL IV 125 mg (NOW). Start 12:30 04/12/2016 Aj Roblero R.N., Stop 13:08 04/12/2016 Aj Roblero R.N. Medication Administered: IV NS (SALINE), Dose: IV Fluids over 1 hour(s), Rate: 1000 mL/hr, Dispensed: 1000 mL bag, Site: #2 left AC. Medication Ordered: IV NS : initial bolus 1000 mL (1000 mL/hr), then none - for X1 (NOW); Stat. Given 13:04 04/12/2016 Jennifer Hill, Medication Administered: DUONEB [NEB TX] (IPRATROPIUM-ALBUTEROL), Dose: 1 unit dose Nebulizer Neb TX. Medication Ordered: DuoNeb Neb Tx 1 unit dose (NOW).
--- NOTE | 2016-04-12 16:51 | ED DISCHARGE INSTRUCTIONS ---
Patient: JESUS HUGHES General Instructions [facility] VisitID: [id number] [place] [address] 55y, F Registration Date/Time: 04/12/2016 Acute exacerbation of COPD (emphysematous) Hypoxia Hypotension. ADDITIONAL INFORMATION COPD Flare Both emphysema and chronic bronchitis are forms of chronic obstructive pulmonary disease (COPD). It is most often caused by many years of smoking tobacco. Many things can make your lung disease suddenly get worse. These causes include the common cold, pneumonia, acute bronchitis, missing doses of your regular breathing medicines, or being around smoke, dust, or other air pollutants. A COPD flare may last 7 to 14 days. Your doctor may prescribe medicineto relax your airways and prevent wheezing. Your doctor may also prescribe antibiotics if he or she thinks you havea bacterial infection. Prednisone can helpease inflammation in a severe attack. Home care Here are things you can do at home: Drink lots of water or other fluids (at least 10 glasses a day) during an attack. This will loosen lung secretions and make it easier to breathe. If you have heart or kidney disease, check with your doctor before you drink extra amounts of fluids. Take prescribed medicine exactly at the times advised. If you have a hand-held inhaler or aerosol breathing medicine, don't use it more than once every 4 hours, unless your doctor tells you to. If you were givenan antibiotic or prednisone, take all of the medicine even if you are feeling better after a few days. Don't smoke. Avoid being aroundthe smoke of others. If you were given an inhaler, use it exactly as directed. If you need to use it more often than prescribed, your condition may be getting worse. Call your doctor. Follow-up care Follow up with your health care provider.If you are 65 or older or have chronic asthma or COPD, you should get a single dose of the pneumococcal vaccine and aflu shot each year. You may need a second dose of the pneumococcal vaccine if you had the first dose at a younger age. Your health care provider will let you know if you need a second dose. For all other people, the usual dose for the pneumococcal vaccine is 1 or 2 shots. Yourprovider can discuss this with you. When to seek medical care Get prompt medical attention ifany of these occur: Increased wheezing or shortness of breath Need to use your inhalers more often than usual without relief Fever of 100.4F(38C) or higher, or as directed by your health care provider Coughing up lots of dark-colored or bloody sputum (mucus) Chest pain with each breath You do not start to improve within 24 hours You have been given the following additional information: COPD Flare (Electronically signed by Ian Barker MD 04/12/2016 16:51)
--- NOTE | 2016-04-12 16:51 | ED MAR SUMMARY ---
..... Medication Administration Record [facility] [address] [place] [address] Patient: JESUS HUGHES Visit ID: [id number] 55y, F Weight: 68.0 kg Height/Length: 64 in BMI: 25.8 ALLERGIES: Ampicillin, Cipro, PredniSONE, Sulfa Antibiotics, Zithromax Given 09:34 04/12/2016 Aj Roblero R.N. Medication Administered: DUONEB [NEB TX] (IPRATROPIUM-ALBUTEROL), Dose: 1 unit dose Neb TX. Medication Ordered: DuoNeb Neb Tx 1 unit dose (NOW). Start 10:48 04/12/2016 Aj Roblero R.N., Stop 16:09 04/12/2016 Aj Roblero R.N. Medication Administered: IV NS (SALINE), Dose: IV Fluids over 4 hour(s), Rate: 250 mL/hr, Site: #1 right AC. Medication Ordered: IV NS : initial bolus none -, then 250 mL/hr for 4h (NOW); Routine. Given 10:58 04/12/2016 Aj Roblero R.N. Medication Administered: TORADOL [IVP], Dose: 30 mg IVP over 2 minute(s), Site: #1 right AC. Medication Ordered: Toradol IV 30 mg (NOW). Given 10:58 04/12/2016 Aj Roblero R.N. Medication Administered: HYDROCODONE-APAP [PO] (HYDROCODONE-ACETAMINOPHEN), Dose: 2 tab 5/325 mg Tablets PO. Medication Ordered: Hydrocodone-APAP PO 10/650 mg (NOW). Given 10:59 04/12/2016 Aj Roblero R.N. Medication Administered: BENADRYL [IVP] (DIPHENHYDRAMINE HCL), Dose: 50 mg IVP over 2 minute(s), Site: #1 right AC. Medication Ordered: Benadryl IV 50 mg (NOW). Start 11:07 04/12/2016 Aj Roblero R.N., Stop 12:30 04/12/2016 Aj Roblero R.N. Medication Administered: ROCEPHIN [IVPB] (CEFTRIAXONE SODIUM), Dose: 2 gm IVPB over 30 minute(s), Rate: 100 mL/hr, Dispensed: 50 mL bag, Site: #1 right AC. Medication Ordered: Rocephin IV 2 gm/50mL (NOW). Given 11:08 04/12/2016 Aj Roblero R.N. Medication Administered: SOLU-MEDROL [IVP] (METHYLPREDNISOLONE SODIUM SUCC), Dose: 125 mg IVP over 2 minute(s), Site: #1 right AC. Medication Ordered: Solu-MEDROL IV 125 mg (NOW). Start 12:30 04/12/2016 Aj Roblero R.N., Stop 13:08 04/12/2016 Aj Roblero R.N. Medication Administered: IV NS (SALINE), Dose: IV Fluids over 1 hour(s), Rate: 1000 mL/hr, Dispensed: 1000 mL bag, Site: #2 left AC. Medication Ordered: IV NS : initial bolus 1000 mL (1000 mL/hr), then none - for X1 (NOW); Stat. Given 13:04 04/12/2016 Jennifer Hill, Medication Administered: DUONEB [NEB TX] (IPRATROPIUM-ALBUTEROL), Dose: 1 unit dose Nebulizer Neb TX. Medication Ordered: DuoNeb Neb Tx 1 unit dose (NOW).
--- NOTE | 2016-04-12 16:51 | ED MED RECONCILIATION SUMMARY ---
Patient: JESUS HUGHES Medication Reconciliation Report [facility] VisitID: [id number] [address] [place] [address] 55y, F Registration Date/Time: 04/12/2016 Weight: 68.0 kg Height/Length: 64 in. BMI: 25.8 ALLERGIES: Ampicillin, Cipro, PredniSONE, Sulfa Antibiotics, Zithromax The patient's Home Medications are listed below: THE FOLLOWING MEDICATIONS NEED TO BE RECONCILED: Advair Diskus Inhalation 2 puffs, 2x a day Ventolin HFA Inhalation 2 puffs The source(s) of the original Home Medication information: patient The following Medications were given to the patient in the Emergency Department: Duoneb [Neb Tx] Neb TX 1 unit dose, administered: 04/12/2016 9:34:00 AM IV NS IV Fluids bolus 0, then 250 mL/hr, administered: 04/12/2016 10:48:00 AM Toradol [IVP] IVP 30 mg, administered: 04/12/2016 10:58:00 AM Hydrocodone-APAP [PO] PO 2 tab, administered: 04/12/2016 10:58:00 AM Benadryl [IVP] IVP 50 mg, administered: 04/12/2016 10:59:00 AM Rocephin [IVPB] IVPB bolus 0, then 2 gm 100 mL/hr, administered: 04/12/2016 11:07:00 AM SOLU-MEDROL [IVP] IVP 125 mg, administered: 04/12/2016 11:08:00 AM IV NS IV Fluids bolus 0, then 1000 mL/hr, administered: 04/12/2016 12:30:00 PM Duoneb [Neb Tx] Neb TX 1 unit dose, administered: 04/12/2016 1:04:00 PM The following Medications were prescribed to the patient: None.
[2016-04-12] MEDS ORDERED: ADVAIR DISKU1 INH (16:55)
[2016-04-12] MEDS ORDERED: VENTOLIN HFA IN (16:56)
[2016-04-12] MEDS ORDERED: ALBUTEROL2.5 MG/3 M IN (16:57)
--- NOTE | 2016-04-12 20:30 | NUR ---
@ 1934 DR. EVANS PRESENT ON UNIT. MD INFORMED OF PATIENTS BP OF 79/46, MD ORDERED IV BOLUS OF 500 ML NS. MD PLACED ORDER IN CPOE. BEFORE BOLUS STARTED, BP CHECKED AGAIN IT WAS 90/57, AFTER 500 IV NS BOLUS, BP 93/58. PT STATE SHE IS DIZZY WHEN SITTING UP, AND DENIES DIZZINIESS WHEN LAYING FLAT. HR IN THE 50'S. BED IN LOWEST POSITION, CALL LIGHT IN REACH, WCTM.
[2016-04-13] VITALS (13 sets, daily range): BP systolic 97–1065; BP diastolic 57–68
--- NOTE | 2016-04-13 00:33 | NUR ---
PT RESTING IN BED, NO DISTRESS NOTED. BP 97/57, HR 54, O2SAT 94% ON 4 LPM O2 VIA NC. PT SLEEPING. WCTM.
--- NOTE | 2016-04-13 06:48 | NUR ---
PT RESTING WELL OVERNIGHT. BP CURRENTLY 105/61, HR 68, 02 SAT 95% ON 3 LPM O2 VIA NC. PT DENIES ANY CHEST PAIN, DIZZINIESS, LIGHT HEADEDNESS THIS AM. PT SITTING UP AT THE BEDSIDE. BED IN LOWEST POSITION, MAHI LIGHT IN REACH, WCTM.
--- NOTE | 2016-04-13 07:26 | Progress Note ---
Subjective General Note Date: April 13, 2016 Admission Date: April 12, 2016 Hospital Day: 2 PCP: Che Good D.O. Status: Inpatient Advanced Directive: FULL CODE Room: 301 Brief History: The patient is a 55-year-old white female with a significant past medical history of COPD, recent pneumonia, previous smoker, glaucoma, who presented to [facility] emergency department on the day of admission secondary to complaints of shortness of breath. [facility] ER evaluation was consistent with exacerbation of COPD , bronchitis. Secondary to the above, the patient was admitted by Justin Edge M.D. for further evaluation and treatment For other history present illness, past medical history, family history, social history, review of systems, and admission physical examination please see the patient's history and physical examination and ER visit note in the patient's medical record. Subjective: The patient states her status is improved today. Decrease shortness of breath. No specific complaints otherwise Patient requests: None Medications and Allergies Medications Current Medications Sig/Andreea Start time Last Medication Dose Route Stop Time Status Admin Methylprednisolone 40 MG Q8HR 04/12 2200 AC 04/13 Sodium Succinate IV 0536 Albuterol/Ipratropium 3 ML RTQ6H 04/12 2000 AC 04/13 IN 0732 Guaifenesin/ 10 ML Q4H PRN 04/12 1730 AC 04/12 Dextromethorphan PO 1740 Ketorolac 30 MG Q6H PRN 04/12 1730 AC 04/12 Tromethamine IV 1740 Ondansetron HCl 4 MG Q4H PRN 04/12 1730 AC 04/12 IV 1740 Acetaminophen 650 MG Q4H PRN 04/12 1700 AC 04/12 PO 1740 Al Hydrox/Mg Hydrox/ 15 ML Q1H PRN 04/12 1700 AC Simethicone PO Albuterol Sulfate 2.5 MG RTQ3H PRN 04/12 1700 AC IN Atropine Sulfate 0.5 MG Q3MIN PRN 04/12 170 AC IV Diphenhydramine HCl 25 MG Q8H 04/12 1700 AC 04/13 PO 0042 Lidocaine HCl See Dose ONCE PRN 04/12 170 AC Insts (1) IV Lorazepam 0.5 MG Q2H PRN 04/12 1700 AC IV Lorazepam 0.5 MG Q2H PRN 04/12 1700 AC PO Magnesium Hydroxide 10 ML DAILY PRN 04/12 170 AC PO Morphine Sulfate 2 MG Q3M PRN 04/12 1700 AC IV Nitroglycerin 0.4 MG Q5M PRN 04/12 170 AC SL Sodium Chloride 1,000 ML ASDIRECTED 04/12 1700 AC 04/13 IV 0231 Enoxaparin Sodium 40 MG QAM 04/12 1657 AC 04/12 SC 1725 Dose Instructions: (1)Lidocaine HCl: 1.5 MG/KG Allergies Coded Allergies: Ampicillin (04/12/16) Azithromycin (04/12/16) Celecoxib (From CELEBREX) (04/12/16) Ciprofloxacin (From CIPRO) (04/12/16) Prednisone (04/12/16) Sulfa Drugs (04/12/16) Physical Exam Vital Signs / I&Os Vital Signs Date Time Temp Pulse Resp B/P Pulse O2 O2 Flow FiO2 Ox Delivery Rate 04/13 0700 97.7 61 16 118/68 91 Nasal 3.0 Cannula 04/13 0600 49 19 115/63 95 Nasal 3.0 Cannula 04/13 0516 49 17 105/61 95 04/13 0400 50 20 105/62 95 04/13 0309 57 22 108/65 93 04/13 0211 3.0 04/13 0200 98.1 04/13 0200 76 19 111/67 91 Nasal 3.0 Cannula 04/13 0109 98.1 51 17 97/65 92 04/13 0000 46 16 97/57 94 04/12 2300 50 16 92/53 93 Nasal 3.0 Cannula 04/12 2201 51 15 89/52 93 Nasal 3.0 Cannula 04/12 2130 97.9 68 20 100/56 95 Nasal Cannula 04/12 2108 87 15 85/49 95 Nasal 3.0 Cannula 04/12 2053 3.0 04/12 2036 64 89/55 04/12 2012 56 18 93/58 93 Nasal 3.0 Cannula 04/12 1946 Nasal 3.0 Cannula 04/12 1942 56 16 90/57 92 Nasal 3.0 Cannula 04/12 1910 53 16 79/46 90 Nasal 3.0 Cannula 04/12 1805 57 16 102/54 92 Nasal 3.0 Cannula 04/12 1723 3.0 04/12 1720 82 16 99/58 96 Nasal 3.0 Cannula 04/12 1700 Nasal 3.0 Cannula 04/12 1621 98.2 70 15 96/58 96 Nasal 3.0 Cannula 04/12 1305 3.0 04/12 0946 3.0 I&O 04/13 0000 04/12 1600 04/12 0800 Intake Total 500 Output Total 500 Balance 0 General Appearance Alert, Oriented X3, Cooperative, No acute distress Lungs minimal expiratory wheezes, otherwise clear to auscultation Cardiovascular Regular rate and rhythm, Normal S1 and S2 Abdomen Normal bowel sounds, Soft, No tenderness Extremities No cyanosis, No clubbing, No edema Neurological Cranial nerves intact, No lateralizing signs Psych/Mental Status Mental status normal, Mood normal LAB Results Laboratory Tests 04/13 04/12 04/12 0355 1758 1658 Blood Gas Total CO2 Cancelled ABG pH Cancelled ABG pCO2 at Pt Temp Cancelled ABG pO2 at Pt Temp Cancelled ABG HCO3 Cancelled ABG O2 Sat Calc/Jesus Cancelled ABG Base Excess Cancelled ABG Reduced Hgb Cancelled ABG Carboxyhemoglobin Cancelled ABG Methemoglobin Cancelled Harpal Test Cancelled Other Total Hgb Cancelled Hgb O2 Saturation Cancelled FiO2 Cancelled Chemistry Plasma Sodium (136 - 145 mmol/L) 141 Plasma Potassium (3.5 - 5.1 mmol/L) 4.0 Plasma Chloride (98 - 107 mmol/L) 109 CO2 (Enzymatic) (21 - 32 mmol/L) 23 BUN (7 - 18 mg/dL) 9 Creatinine (0.6 - 1.3 mg/dL) 0.6 Est GFR ( Amer) (mL/min) >60 Est GFR (Non-Af Amer) (mL/min) >60 Glucose (70 - 110 mg/dL) 179 Plasma Calcium (8.5 - 10.1 mg/dL) 7.9 Total Bilirubin (0.0 - 1.0 mg/dL) 0.3 AST (15 - 37 U/L) 19 ALT (12 - 78 U/L) 37 Alkaline Phosphatase (46 - 116 U/L) 51 Total Protein (6.4 - 8.2 g/dL) 5.8 Albumin (3.3 - 5.0 g/dL) 3.0 Procalcitonin (0 - 0.5 ng/mL) <0.5 Hematology WBC (4.5 - 11.5 K/uL) 14.4 RBC (4.00 - 5.20 M/uL) 3.98 Hgb (12.0 - 16.0 gm/dL) 12.3 Hct (36.0 - 46.0 %) 37.8 MCV (80 - 100 fL) 95 MCH (26 - 34 pg) 31 RDW (11.6 - 14.8 %) 13.3 Neut % (Auto) (50 - 75 %) 76 Lymph % (Auto) (25 - 40 %) 8 Cache % (Auto) (3 - 14 %) 2 Eos % (Auto) (0 - 4 %) 0 Baso % (Auto) (0 - 2 %) 0 Band Neutrophils % (0 - 8 %) 14 Metamyelocytes % (0 - 1 %) 0 Myelocytes (0 - 1 %) 0 Other Cell Type 0 Plt Count, EDTA (150 - 400 K/uL) 299 Anisocytosis (manual) 1+ PUBS MCHC (31 - 37 g/dL) 33 04/12 04/12 04/12 1050 1033 0935 Blood Gas Total CO2 Cancelled ABG pH Cancelled ABG pCO2 at Pt Temp Cancelled ABG pO2 at Pt Temp Cancelled ABG HCO3 Cancelled ABG O2 Sat Calc/Jesus Cancelled ABG Base Excess Cancelled ABG Reduced Hgb Cancelled ABG Carboxyhemoglobin Cancelled ABG Methemoglobin Cancelled Harpal Test Cancelled Other Total Hgb Cancelled Hgb O2 Saturation Cancelled FiO2 Cancelled Chemistry Lactic Acid (0.4 - 2.0 mmol/L) 1.4 Procalcitonin (0 - 0.5 ng/mL) <0.5 Urines Urine Color YELLOW Urine Appearance CLEAR Urine pH (5.0 - 8.0) 7.5 Ur Specific [place] (1.010 - 1.030) <= 1.005 Urine Protein (NEGATIVE) NEGATIVE Urine Ketones (NEGATIVE) NEGATIVE Urine Blood (NEGATIVE) TRACE-INTACT Urine Nitrite (NEGATIVE) NEGATIVE Urine Bilirubin (NEGATIVE) NEGATIVE Urine Urobilinogen (0.2 - 1.0 EU/dL) 0.2 Ur Leukocyte Esterase (NEGATIVE) NEGATIVE Urine RBC (0 - 1 rbc/hpf) 1-3 Urine WBC (0 - 1 wbc/hpf) NONE SEEN Ur Epithelial Cells (0 - 5 EPI/hpf) 3-5 Urine Bacteria (NONE SEEN) NONE SEEN Urine Glucose (NEGATIVE) NEGATIVE Urine Comment CULT NOT INDICATED 01/23 01/23 0930 0930 Chemistry Plasma Sodium (136 - 145 mmol/L) 142 Plasma Potassium (3.5 - 5.1 mmol/L) 3.9 Plasma Chloride (98 - 107 mmol/L) 106 CO2 (Enzymatic) (21 - 32 mmol/L) 24 BUN (7 - 18 mg/dL) 10 Creatinine (0.6 - 1.3 mg/dL) 0.8 Est GFR ( Amer) (mL/min) >60 Est GFR (Non-Af Amer) (mL/min) >60 Glucose (70 - 110 mg/dL) 108 Plasma Calcium (8.5 - 10.1 mg/dL) 8.6 Plasma Magnesium (1.8 - 2.4 mg/dL) 2.0 Total Bilirubin (0.0 - 1.0 mg/dL) 1.2 AST (15 - 37 U/L) 14 ALT (12 - 78 U/L) 29 Alkaline Phosphatase (46 - 116 U/L) 59 Total Protein (6.4 - 8.2 g/dL) 6.8 Albumin (3.3 - 5.0 g/dL) 3.7 Hematology WBC (4.5 - 11.5 K/uL) 20.4 RBC (4.00 - 5.20 M/uL) 4.82 Hgb (12.0 - 16.0 gm/dL) 14.9 Hct (36.0 - 46.0 %) 45.0 MCV (80 - 100 fL) 94 MCH (26 - 34 pg) 31 RDW (11.6 - 14.8 %) 12.6 Neut % (Auto) (50 - 75 %) 83.9 Lymph % (Auto) (25 - 40 %) 8.2 Cache % (Auto) (3 - 14 %) 6.8 Eos % (Auto) (0 - 4 %) 0.1 Baso % (Auto) (0 - 2 %) 1.0 Plt Count, EDTA (150 - 400 K/uL) 370 PUBS MCHC (31 - 37 g/dL) 33 Microbiology Date/Time Procedure - Status Source Growth 04/12 1630 MRSA Screen - COLB NASAL 04/12 1050 Blood Culture - RECD BLOOD 04/12 929 Respiratory Culture - RES SPUTUM 04/12 929 Culture and Gram Stain - RES SPUTUM 04/12 929 Influenza Screen - COMP NASALPHAR Assessment and Plan Problem List 1. Acute exacerbation of COPD with asthma Plan -Status improved -Persistent mild hypoxemia on room air -Continue DuoNeb, albuterol, and switch to oral corticosteroids -Possible discharge tomorrow with improved status 2. Hypotension Plan -Resolved -Monitor 3. Upper respiratory infection Plan -Improved -Afebrile -WBC improved with normal Procalcitonin -Possible discharge in a.m. with improved status Current status: Fair, improved Anticipated discharge date: Anticipated discharge in 1-2 days Anticipated discharge placement: Home Patient care time: Time spent in chart review, patient interview, physical exam, CPOE, and care documentation: 25 minutes Visit to patient today: 2 Complexity of care: Moderate E&M Codes Rounding: Inpt-Moderate/[id number]
--- NOTE | 2016-04-13 15:59 | NUR ---
NUTRITION ASSESSMENT: S: Pt admitted with dx/o acute exacerbation of COPD, asthma, hypoxia, hypotension, upper respiratory infection. Pt with PMH of COPD, recurrent PNA, previous smoker, glaucoma. PT eating ~30-50% of her meals so far. O: Diet Rx: Cardiac NKFA Wts: 71 kg Ht: 64" IBW: 61-69 kg BMI: 27 Est Kcals: ~7836-8945 kcals per day Est Pro: ~65-80 g per day Est Fluids: ~1950 mls per day Meds Incl: prednisone, enoxaparin, see eMar for complete list/details. Labs Incl: (04/13) glucose 179, BUN 9, Creat 0.6, Na+ 141, K+ 4.0, Ca+ 7.9, total pro 5.8, albumin 3.0, HCT 37.8, HGB 12.3, MCH 31, HGB 95 Skin: Armand Score 21, no open areas noted or reported. A: Pt po intake appears to be fair. Low sodium diet in place. Rec change to general 2/2 do not see a dx to support this at this time. Rev'd meds and labs. RD to follow up and monitor nutrition indices prn/protocol. P: 1. Rec change diet to general diet please. 2. RD to follow up prn/protocol.
[2016-04-14 01:58] VITALS: BP 115/62
--- NOTE | 2016-04-14 03:16 | NUR ---
A/Ox4, desat on RA to 85-86% asymptomatic on 2L n/c 93-94%, independent to BSC, passing flatus c/o of no stool prior to admit, received laxative on dayshift, BT present, Nystatin for thrush. Call light in reach for safety/fall prevention.
[2016-04-14 07:07] VITALS: BP 131/74
[2016-04-14 07:14] VITALS: BP 112/63
--- NOTE | 2016-04-14 08:33 | Progress Note ---
Subjective General Note Date: April 14, 2016 Admission Date: April 12, 2016 Hospital Day: 3 PCP: Che Good D.O. Status: Inpatient Advanced Directive: FULL CODE Room: 301 Brief History: The patient is a 55-year-old white female with a significant past medical history of COPD, recent pneumonia, previous smoker, glaucoma, who presented to [facility] emergency department on the day of admission secondary to complaints of shortness of breath. [facility] ER evaluation was consistent with exacerbation of COPD , bronchitis. Secondary to the above, the patient was admitted by Justin Edge M.D. for further evaluation and treatment For other history present illness, past medical history, family history, social history, review of systems, and admission physical examination please see the patient's history and physical examination and ER visit note in the patient's medical record. Subjective: The patient states her status is improved today. Decrease shortness of breath. No specific complaints otherwise. Ready for discharge Patient requests: None Medications and Allergies Medications See MAR Allergies Coded Allergies: Ampicillin (04/12/16) Azithromycin (04/12/16) Celecoxib (From CELEBREX) (04/12/16) Ciprofloxacin (From CIPRO) (04/12/16) Prednisone (04/12/16) Sulfa Drugs (04/12/16) Physical Exam Vital Signs / I&Os Vital Signs Date Time Temp Pulse Resp B/P Pulse O2 O2 Flow FiO2 Ox Delivery Rate 04/14 0801 2.0 04/14 0707 98.2 72 17 131/74 96 Nasal 2.0 Cannula 04/14 0158 98.1 66 17 115/62 92 Nasal 2.0 Cannula 04/14 0125 2.0 04/13 2228 98.1 59 18 108/66 94 Nasal 2.0 Cannula 04/13 1910 2.0 04/13 1910 98.2 75 25 112/67 93 Nasal 2.0 Cannula 04/13 1445 98.1 73 25 125/68 92 Nasal 2.0 Cannula 04/13 1403 2.0 04/13 1258 64 20 111/61 93 Nasal 2.0 Cannula 04/13 1129 54 20 93 Nasal 2.0 Cannula 04/13 0939 Nasal 2.0 Cannula 04/13 0910 69 21 1065/63 92 Nasal 2.0 Cannula I&O 04/14 0000 04/13 1600 04/13 0800 Intake Total 690 1640 1970 Output Total 1220 1250 1000 Balance -530 390 970 General Appearance Alert, Oriented X3, Cooperative, No acute distress Lungs Minimal expiratory wheezes-Much improved Cardiovascular Regular rate and rhythm, Normal S1 and S2 Abdomen Normal bowel sounds, Soft Extremities No cyanosis, No clubbing Neurological Normal exam Psych/Mental Status Mental status normal, Mood normal LAB Results Laboratory Tests 04/14 04/14 0510 0510 Chemistry Plasma Sodium (136 - 145 mmol/L) 142 Plasma Potassium (3.5 - 5.1 mmol/L) 4.4 Plasma Chloride (98 - 107 mmol/L) 108 CO2 (Enzymatic) (21 - 32 mmol/L) 25 BUN (7 - 18 mg/dL) 14 Creatinine (0.6 - 1.3 mg/dL) 0.7 Est GFR ( Amer) (mL/min) >60 Est GFR (Non-Af Amer) (mL/min) >60 Glucose (70 - 110 mg/dL) 132 Hemoglobin A1c % (4.5 - 6.2 %) 5.5 Plasma Calcium (8.5 - 10.1 mg/dL) 8.1 Hematology WBC (4.5 - 11.5 K/uL) 23.2 RBC (4.00 - 5.20 M/uL) 3.90 Hgb (12.0 - 16.0 gm/dL) 12.3 Hct (36.0 - 46.0 %) 37.2 MCV (80 - 100 fL) 95 MCH (26 - 34 pg) 31 RDW (11.6 - 14.8 %) 13.2 Neut % (Auto) (50 - 75 %) Pending Lymph % (Auto) (25 - 40 %) Pending [place] % (Auto) (3 - 14 %) Pending Band Neutrophils % (0 - 8 %) Pending Plt Count, EDTA (150 - 400 K/uL) 317 PUBS MCHC (31 - 37 g/dL) 33 Assessment and Plan Problem List 1. Acute exacerbation of COPD with asthma Plan -much improved -Discharge today -See discharge instructions Current status: Good, improved Anticipated discharge date: Today Anticipated discharge placement: Home Patient care time: Time spent in chart review, patient interview, physical exam, CPOE, and care documentation: 30 minutes Visit to patient today: 2 Complexity of care: Moderate E&M Codes Discharge: Inpt >30 min spent/[id number] Current status: [current status] Anticipated discharge date: [discharge date] Anticipated discharge placement: [Home] Patient care time: Time spent in chart review, patient interview, physical exam, CPOE, and care documentation: [ ] minutes Visit to patient today: [ ] Complexity of care: [ ] E&M Codes Discharge: Inpt >30 min spent/[id number]
[2016-04-14 09:30] VITALS: BP 124/72
[2016-04-14] MEDS ORDERED: MYCELEX10 MG PO (11:07)
[2016-04-14] MEDS ORDERED: IPRATROPIUM BROMIDE/ IN (11:07)
[2016-04-14] MEDS ORDERED: BENADRYL25 MG PO (11:07)
[2016-04-14] MEDS ORDERED: PREDNISONE20 MG PO ×2 (11:09→12:41)
--- NOTE | 2016-04-14 11:10 | Provider's Discharge Care Plan ---
Problem, Goal, Plan Problem List 1. Oral candidiasis Goals: Improve disease control, Prevent disease progress Instructions: Follow up as directed, Take meds as directed 2. Acute exacerbation of COPD with asthma Goals: Improve disease control, Prevent disease progress Instructions: Follow up as directed, Take meds as directed
[2016-04-14] MEDS ORDERED: O2 IN (11:11)
--- NOTE | 2016-04-14 11:13 | Discharge Summary ---
Discharge Summary Report Admit Date 04/12/16 Discharge Date 04/14/16 Admission Diagnosis 1. Exacerbation COPD 2. Viral URI Discharge Diagnosis 1. Exacerbation COPD 2. Viral URI/Bronchitis 3. Oral candidiasis Brief History The patient is a 55-year-old white female with a significant past medical history of COPD, recent pneumonia, previous smoker, glaucoma, who presented to [facility] emergency department on the day of admission secondary to complaints of shortness of breath. [facility] ER evaluation was consistent with exacerbation of COPD , bronchitis. Secondary to the above, the patient was admitted by Justin Edge M.D. for further evaluation and treatment For other history present illness, past medical history, family history, social history, review of systems, and admission physical examination please see the patient's history and physical examination and ER visit note in the patient's medical record. Hospital Course The following problems and their management were noted during the patient's hospitalization: 1. Exacerbation COPD The patient presented with findings of exacerbation of COPD. She was treated with inhalational bronchodilators/corticosteroids. Symptoms gradually improved. At the time of discharge her status was much improved but the patient continued to require supplemental oxygen. She was discharged on DuoNeb, albuterol, Advair , corticosteroid taper and O2 at 2 L/m via nasal cannula. she will follow-up with her PCP this week. 2. Viral URI/Bronchitis The patient had findings suggestive of viral URI/bronchitis. This was much improved during her hospital stay. No treatment at the time of discharge. 3. Oral candidiasis The patient was noted to have finding oral candidiasis. This was treated with Mycelex 10 mg by mouth 5 times a day on discharge. Outpatient follow-up with PCP. Lab/Imaging Laboratory Tests 04/14 04/14 04/14 0510 0510 0500 Chemistry Plasma Sodium (136 - 145 mmol/L) 142 Plasma Potassium (3.5 - 5.1 mmol/L) 4.4 Plasma Chloride (98 - 107 mmol/L) 108 CO2 (Enzymatic) (21 - 32 mmol/L) 25 BUN (7 - 18 mg/dL) 14 Creatinine (0.6 - 1.3 mg/dL) 0.7 Est GFR ( Amer) (mL/min) >60 Est GFR (Non-Af Amer) (mL/min) >60 Glucose (70 - 110 mg/dL) 132 Hemoglobin A1c % (4.5 - 6.2 %) 5.5 Plasma Calcium (8.5 - 10.1 mg/dL) 8.1 Procalcitonin Pending Hematology WBC (4.5 - 11.5 K/uL) 23.2 RBC (4.00 - 5.20 M/uL) 3.90 Hgb (12.0 - 16.0 gm/dL) 12.3 Hct (36.0 - 46.0 %) 37.2 MCV (80 - 100 fL) 95 MCH (26 - 34 pg) 31 RDW (11.6 - 14.8 %) 13.2 Neut % (Auto) (50 - 75 %) 89 Lymph % (Auto) (25 - 40 %) 3 [place] % (Auto) (3 - 14 %) 5 Eos % (Auto) (0 - 4 %) 0 Baso % (Auto) (0 - 2 %) 0 Band Neutrophils % (0 - 8 %) 3 Metamyelocytes % (0 - 1 %) 0 Myelocytes (0 - 1 %) 0 Other Cell Type 0 Plt Count, EDTA (150 - 400 K/uL) 317 PUBS MCHC (31 - 37 g/dL) 33 Discharge Instructions/Meds For other recommendations regarding discharge diet, activity, followup, and discharge medications please see the patient's discharge instructions. Discharge condition: Fair, improved Greater than 30 min. was spent in the patient's discharge preparation including discharge interview and physical examination, progress note, discharge instructions, and discharge summary The patient was interviewed and examined on the day of discharge. E&M Codes Discharge: Inpt >30 min spent/[id number]
--- NOTE | 2016-04-14 12:54 | NUR ---
PT DESATURATED TO 88% ON ROOM AIR AT REST. AMBULATING IN HALLS, SATS DOWN TO 87% ON ROOM AIR. OXYGEN REPLACED AT 2 LPM NC. PT DOES NOT REPORT FEELING SOB WITH LOWER O2 SATS, INCLUDING WHEN UP AMBULATING IN HALLS. VERY EAGER TO GO HOME. DC ORDERS REC'D AND HOME OXYGEN ORDERED BY DC PLANNING. PORTABLE OXYGEN TANK PROVIDED FOR TRANSFER TO HOME. [facility]ED IN TO [email or web address], [facility]. DC ORDERS GIVEN TO PT WITH FRIEND PRESENT. PT VERBALIZES UNDERSTANDING OF DC INSTRUCTIONS AND FOLLOW UP CARE. ESCORTED BY FACILITY TECH VIA WC TO PRIVATE VEHICLE DRIVEN BY FRIEND. DC TO HOME IN STABLE CONDITION AT 1230PM.
[2016-05-13] MEDS ORDERED: VITAMIN D-31000 UNIT PO (12:09)
== END 2016-04-14 12:30 | disposition home or self-care (01) | DRG 140 ==
LOC: ED SRH 09:22 → TRANS SRH 13:39 → CC SRH 16:20
PROVIDERS: ADMIT Emergency Medicine
DX: J44.0 Chronic obstructive pulmonary disease with (acute) lower respiratory infection (principal); J20.8 Acute bronchitis due to other specified organisms; J44.1 Chronic obstructive pulmonary disease with (acute) exacerbation; J45.901 Unspecified asthma with (acute) exacerbation; Z87.891 Personal history of nicotine dependence; I95.9 Hypotension, unspecified; R09.02 Hypoxemia; B37.0 Candidal stomatitis
CPT/HCPCS: 90004; 90047; 90065; 90074; 90100; 90127; 90309; 90627; 91286; 91295; 91400; 92031; 92132; 92720; 93004; 94139; 94140; 94141; 95059; 95061

== ENCOUNTER 2016-04-15 16:00 | Outpatient (CLI) | payer OTHER ==
[~2016-04-15 16:00] MED LIST: ADVAIR DISKU1 INH; ALBUTEROL2.5 MG/3 M IN; BENADRYL25 MG PO; IPRATROPIUM BROMIDE/ IN; MYCELEX10 MG PO; O2 IN; PREDNISONE20 MG PO; VENTOLIN HFA IN
[2016-05-13] MEDS ORDERED: VITAMIN D-31000 UNIT PO (12:09)
== END 2016-04-15 23:00 ==
LOC: LAB SRH 16:00
DX: M79.1 Myalgia (principal)
CPT/HCPCS: 90074; 90100; 90279; 90648; 91096; 91286; 91504; 92690; 92740; 92860; 93140; 94060; 95059; 95150; 98370; 98460

== ENCOUNTER 2016-04-27 09:54 | Outpatient (CLI) | payer OTHER ==
--- NOTE | 2016-04-27 10:28 | DIAGNOSTIC IMAGING REPORT ---
PROCEDURE: XR HIP BILATERAL INDICATION: PAIN OF RIGHT HIP, initial encounter TECHNIQUE: AP view of the pelvis and hips with lateral views of the bilateral hips. COMPARISON: None. FINDINGS: RIGHT HIP: No fracture or dislocation. LEFT HIP: No fracture or dislocation. AP PELVIS: No suspicious osseous lesions. Soft tissues are unremarkable. IMPRESSION: 1. Negative bilateral hips
[2016-05-13] MEDS ORDERED: VITAMIN D-31000 UNIT PO (12:09)
== END 2016-04-27 23:00 ==
LOC: XR SRH 09:54
DX: M25.551 Pain in right hip (principal)

== ENCOUNTER 2016-07-27 08:41 | Outpatient (CLI) | payer OTHER ==
[~2016-07-27 08:41] MED LIST changes: +VITAMIN D-31000 UNIT PO
== END 2016-07-27 23:00 ==
LOC: LAB SRH 08:41
DX: M89.8X9 Other specified disorders of bone, unspecified site (principal); R22.33 Localized swelling, mass and lump, upper limb, bilateral
CPT/HCPCS: 90074; 90279; 90299; 90300; 90322; 90724; 91134; 91135; 91203; 91204; 91205; 92015; 92565; 94001; 95018; 95019; 95150; 98020